=== PATIENT | female | born 2005 | race Hispanic/Latino ===

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

== ENCOUNTER 2024-01-24 12:45 | Emergency (ER) | payer OTHER ==
[2024-01-24 13:52] LABS: SARS-CoV-2 E Target Positive; SARS-CoV-2 N2 Target Positive; SARS-CoV-2 NAA Rapid Test DETECTED (NotDetected); SARS-CoV-2 RdRP gene Positive
[2024-01-24] MEDS ORDERED: Acetaminophen 500 MG TAB ONE (13:56)
[2024-01-24] MEDS ORDERED: Dexamethasone 10 MG/ML VIAL ONE (13:56)
== END 2024-01-24 14:29 | disposition home or self-care (01) ==
LOC: ERS 12:45
DX: U07.1 COVID-19 (principal); R73.03 Prediabetes
CPT/HCPCS: 71045; J1100; U0002